=== PATIENT | female | born 1990 | race Caucasian/White ===

== ENCOUNTER 2017-03-25 10:19 | Day surgery (SDC) | payer BC ==
--- NOTE | ~2017-03-25 | EGD ---
EGD REPORT [facility] [address] [place] [address] NAME: ERICKSON FRIAS : [birth year] STATUS : REG [facility]#: [id number] AGE: 26 ADM/REG DATE : 03/25/17 MR#: [id number] REPORT SERV DATE: 03/25/17 DICTATED BY: TABITHA AYALA DATE: 03/25/17 REPORT STATUS : Draft TRANSCRIBED BY: [facility] DATE: 03/25/17 Endoscopy Center Patient Name: Erickson Frias Date of : 1990 Attending MD: TABITHA AYALA MD Procedure Date No Time: 03/25/2017 Procedure: Upper GI endoscopy Indications: Dysphagia, Heartburn, Suspected esophageal reflux Referring MD: CHRISTIANO LOPEZ Medicines: as per anesthesia Complications: No immediate complications. Procedure: Pre-Anesthesia Assessment: - ASA Grade Assessment: III - A patient with severe systemic disease. After obtaining informed consent, the endoscope was passed under direct vision. Throughout the procedure, the patient's blood pressure, pulse, and oxygen saturations were monitored continuously. The GIF [id number] was introduced through the mouth, and advanced to the third part of duodenum. The upper GI endoscopy was accomplished without difficulty. The patient tolerated the procedure. Findings: The examined esophagus was normal. The scope was withdrawn. Dilation was performed with a Peres dilator with no resistance at 44 Fr. The entire examined stomach was normal. The cardia and gastric fundus were normal on retroflexion. The examined duodenum was normal. Impression: - Normal esophagus. Dilated. - Normal stomach. - Normal examined duodenum. Recommendation: - Follow an antireflux regimen. - Continue present medications. Procedure Code(s): --- Professional --- 61912, Esophagogastroduodenoscopy, flexible, transoral; diagnostic, including collection of specimen(s) by brushing or washing, when performed (separate procedure) 12249, Dilation of esophagus, by unguided sound or bougie, single or multiple passes Diagnosis Code(s): --- Professional --- EGD REPORT [place] [id number] [id number] NAME: ERICKSON FRIAS : [birth year] STATUS : REG [facility]#: [id number] AGE: 26 ADM/REG DATE : 03/25/17 MR#: [id number] REPORT SERV DATE: 03/25/17 DICTATED BY: TABITHA AYALA. DATE: 03/25/17 REPORT STATUS : Draft TRANSCRIBED BY: [employer] DATE: 03/25/17 R13.10, Dysphagia, unspecified R12, Heartburn CPT copyright 2013 [employer]. All rights reserved. The codes documented in this report are preliminary and upon antique furniture reproducer review may be revised to meet current compliance requirements. TABITHA AYALA MD 03/25/2017 1:28 PM This report has been signed electronically. Number of Addenda: 0 Note Initiated On: 03/25/2017 1:02 PM Scope Withdrawal Time 0 hours 0 minutes 0 seconds [id number] [id number]
[~2017-03-25 10:19] MED LIST: ADAPALENE T; ALLERGY INJECTION SC; ARNUITY ELLIP100 MCG INH; BUSPAR5 PO; CYMBALTA60 PO; EPIPEN0.3 IM; GLUCPH PO; LINZESS 145 M145 MCG PO; MAXALT10 MG PO; MEVACOR40 MG PO; NEUR100 PO; PRILO PO; SINGULAIR1 PO; TOPAMAX50 MG PO; TRILEP300 PO; ZANTAC150 MG PO; ZYRTEC LIQUID PO
== END 2017-03-25 23:59 | disposition home or self-care (01) ==
LOC: DMU 10:19
PROVIDERS: Internal Medicine Gastroenterology
PROC: 0D757ZZ Dilation of Esophagus, Via Natural or Artificial Opening (ICD-10-PCS; principal; 2017-03-25 12:00)
DX: R13.10 Dysphagia, unspecified (principal); R12 Heartburn; E66.01 Morbid (severe) obesity due to excess calories; E11.9 Type 2 diabetes mellitus without complications; F31.9 Bipolar disorder, unspecified; F43.10 Post-traumatic stress disorder, unspecified; J45.909 Unspecified asthma, uncomplicated; E78.00 Pure hypercholesterolemia, unspecified; K21.9 Gastro-esophageal reflux disease without esophagitis; K58.9 Irritable bowel syndrome, unspecified; R56.9 Unspecified convulsions; Z88.2 Allergy status to sulfonamides; Z88.0 Allergy status to penicillin; Z68.43 Body mass index [BMI] 50.0-59.9, adult; Z85.820 Personal history of malignant melanoma of skin; Z98.890 Other specified postprocedural states; Z79.84 Long term (current) use of oral hypoglycemic drugs; Z79.899 Other long term (current) drug therapy; Z79.51 Long term (current) use of inhaled steroids
CPT/HCPCS: 82962; 84703